=== PATIENT | female | born 1950 | race Hispanic/Latino ===

== ENCOUNTER → 2018-01-31 | Outpatient (CLI) | payer OTHER | END | disposition home or self-care (01) | LOC: RAH 13:34 | PROVIDERS: ATTEND Family Medicine | DX: Z12.31 Encounter for screening mammogram for malignant neoplasm of breast (principal) | CPT/HCPCS: 77067 ==

== ENCOUNTER → 2019-02-01 | Outpatient (CLI) | payer OTHER | END | disposition home or self-care (01) | LOC: RAH 12:33 | PROVIDERS: ATTEND Family Medicine | DX: Z12.31 Encounter for screening mammogram for malignant neoplasm of breast (principal) | CPT/HCPCS: 77067 ==

== ENCOUNTER 2021-10-07 06:43 | Day surgery (SDC) | payer OTHER ==
[2021-10-02 14:57] LABS: BASOPHILS % (AUTO) 0.3 % (0.0-5.0); EOSINOPHILS % (AUTO) 0.8 % (0.0-8.0); HEMATOCRIT 41.6 % (36-48); LYMPHOCYTES % (AUTO) 28.3 % (21.0-51.0); MEAN CORPUSCULAR HEMOGLOBIN 25.9 pg (27.0-33.0); MEAN CORPUSCULAR HGB CONC 31.3 g/dL (32.0-36.0); MONOCYTES % (AUTO) 8.4 % (3.0-13.0); NEUTROPHILS % (AUTO) 61.7 % (40.0-77.0); PLATELET COUNT (AUTO) 263 K/uL (130-400); RED BLOOD CELL COUNT(AUTO) 5.01 MIL/uL (4.00-5.50); WHITE BLOOD COUNT (AUTO) 8.8 K/uL (4.8-10.8)
[2021-10-02 14:59] LABS: APPEARANCE,URINE Clear (CLEAR); BILIRUBIN,URINE Negative (NEGATIVE); COLOR,URINE Yellow (YELLOW); GLUCOSE, URINE (UA) Negative (NEGATIVE); KETONES,URINE Trace mg/dL (NEGATIVE); LEUKOCYTE ESTERASE ,URINE Small (NEGATIVE); NITRATE,URINE Negative (NEGATIVE); OCCULT BLOOD,URINE Small (NEGATIVE); PH,URINE 5.5 (5.0-8.0); PROTEIN,URINE Negative (NEGATIVE)
[2021-10-02 15:12] LABS: BACTERIA,URINE Few /HPF (None Seen); SQUAMOUS EPITHELIAL CELL,UR Rare /HPF (0-2)
[2021-10-02 15:15] LABS: CREATININE 0.9 mg/dL (0.5-1.5); INR 0.93 (0.85-1.15); PROTHROMBIN TIME 9.8 SEC (9.6-11.6)
[2021-10-02 15:16] LABS: B-TYPE NATRIURETIC PEPTIDE 29 pg/mL (0-100); PARTIAL THROMBOPLASTIN TIME 24.8 SEC (26.3-35.5)
[2021-10-06 10:51] VITALS: BP 137/56
[2021-10-07] VITALS (10 sets, daily range): BP systolic 99–135; BP diastolic 42–66
[~2021-10-07] VITALS: Ht 157.5 cm; Wt 70.3 kg
[~2021-10-07 06:43] MED LIST: AEC81 PO; ATOR20TA65 PO; GLUC-252 PO; KRIL1CAP22 PO; LISI40TA9 PO; METO-408 PO
[2021-10-07] MEDS ORDERED: 0.9%NACL 1000ML 1,000 ML IV ONE (07:03)
[2021-10-07] MEDS ORDERED: LIFI1DRO OU (08:03)
[2021-10-07] MEDS ORDERED: NITROGLYCERIN 50MG VIAL ONE (08:48)
[2021-10-07] MEDS ORDERED: IOHEXOL-350 50ML VIAL IV ONE (08:48)
[2021-10-07] MEDS ORDERED: IOHEXOL 350 MG/ML 100ML INFUS..BTL IV ONE (08:48)
[2021-10-07] MEDS ORDERED: SODIUM BICARB 50MEQ 50ML VIAL 50 ML ONE (08:48)
[2021-10-07] MEDS ORDERED: LIDOCAINE HCL 400MG/20ML VIAL ONE (08:49)
[2021-10-07] MEDS ORDERED: FENTANYL CITRATE PF 50 MCG/1 ML 2ML VIAL ONE (09:29)
[2021-10-07] MEDS ORDERED: NICARDIPINE 25MG INJ IV ONE (09:29)
[2021-10-07] MEDS ORDERED: MIDAZOLAM HCL 1 MG/ML 2ML VIAL ONE (09:29)
[2021-10-07] MEDS ORDERED: HEPARIN 10,000 UNIT/10ML (1,000 UNIT/ML) VIAL ONE (09:36)
[2021-10-07] MEDS ORDERED: TICAGRELOR 90 MG TABLET ONE (10:03)
[2021-10-07] MEDS ORDERED: ASPIRIN 325MG EC TAB PO ONE (10:03)
[2021-10-07] MEDS ORDERED: TICA90TA PO (10:45)
[2021-10-07] MEDS ORDERED: ATOR40TA71 PO (10:45)
[2021-10-07] MEDS ORDERED: 0.9%NACL 1000ML 1,000 ML IV SCH (11:00)
[2021-10-07] MEDS ORDERED: ACETAMINOPHEN 325 MG TAB ONE (11:33)
[2021-10-07] MEDS ORDERED: TICAGRELOR 90 MG TABLET PO SCH (21:00)
[2021-10-08] MEDS ORDERED: ASPIRIN 81MG CHEW TAB PO SCH (09:00)
== END 2021-10-07 15:00 | disposition home or self-care (01) ==
LOC: DAH 06:43
PROVIDERS: ATTEND Internal Medicine Cardiovascular Disease
DX: R94.39 Abnormal result of other cardiovascular function study (principal); I25.119 Atherosclerotic heart disease of native coronary artery with unspecified angina pectoris; I10 Essential (primary) hypertension; E78.5 Hyperlipidemia, unspecified; Z90.710 Acquired absence of both cervix and uterus; Z79.82 Long term (current) use of aspirin; Z79.01 Long term (current) use of anticoagulants; Z79.899 Other long term (current) drug therapy
CPT/HCPCS: 80048; 83880; 85025; 85610; 85730; 87088; 81001; 36415 ×2; 71045; 93005 ×2; 93454; 85347; C9600; C1769 ×2; C1894; C1887; C1874; C1725; Q9965 ×2; J3010; J3490 ×4; J7030; J1644 ×2; J2250; Q9967; A4215; A4222; A4221; A4663; A4216; A4606; A4223 ×3; 99156; 99157

== ENCOUNTER 2021-10-09 16:09 | Observation (INO) | payer OTHER ==
[~2021-10-09] VITALS: Ht 157.5 cm; Wt 68.5 kg
[~2021-10-09 16:09] MED LIST changes: -ATOR20TA65 PO; +ATOR40TA71 PO; +LIFI1DRO OU; +TICA90TA PO
[2021-10-09] MEDS ORDERED: NITROGLYCERIN 0.4 MG SL TAB SL ONE (16:20)
[2021-10-09] MEDS ORDERED: ASPIRIN 325MG TAB ONE (16:20)
[2021-10-09] MEDS ORDERED: NITROGLYCERIN 1GM OINT 1 INCH/1GM TD ONE ×2 (16:20→16:30)
[2021-10-09] MEDS ORDERED: ONDANSETRON 4MG INJ IVP ONE (16:30)
[2021-10-09] MEDS ORDERED: NITROGLYCERIN 0.4 MG SL TAB SL PRN (16:30)
[2021-10-09] MEDS ORDERED: ASPIRIN 325MG TAB PO ONE (16:30)
[2021-10-09 16:55] LABS: BASOPHILS % (AUTO) 0.3 % (0.0-5.0); EOSINOPHILS % (AUTO) 0.6 % (0.0-8.0); HEMATOCRIT 36.4 % (36-48); LYMPHOCYTES % (AUTO) 28.5 % (21.0-51.0); MEAN CORPUSCULAR HEMOGLOBIN 26.5 pg (27.0-33.0); MEAN CORPUSCULAR VOLUME 80.5 fL (79-99); NEUTROPHILS % (AUTO) 60.2 % (40.0-77.0); PLATELET COUNT (AUTO) 276 K/uL (130-400); RED BLOOD CELL COUNT(AUTO) 4.52 MIL/uL (4.00-5.50); RED CELL DISTRIBUTION WIDTH 14.6 % (11.0-15.5); WHITE BLOOD COUNT (AUTO) 10.4 K/uL (4.8-10.8)
[2021-10-09 17:00] LABS: APPEARANCE,URINE CLEAR (CLEAR); BILIRUBIN,URINE NEGATIVE (NEGATIVE); COLOR,URINE YELLOW (YELLOW); GLUCOSE, URINE (UA) NEGATIVE (NEGATIVE); KETONES,URINE NEGATIVE (NEGATIVE); LEUKOCYTE ESTERASE ,URINE SMALL (NEGATIVE); NITRATE,URINE NEGATIVE (NEGATIVE); OCCULT BLOOD,URINE SMALL (NEGATIVE); PH,URINE 6.5 (5.0-8.0); PROTEIN,URINE NEGATIVE (NEGATIVE); UROBILINOGEN,URINE 0.2 mg/dL (0.2-1.0)
[2021-10-09] MEDS ORDERED: CLOPIDOGREL 300MG TAB PO ONE (17:00)
[2021-10-09 17:04] LABS: CREATININE 0.9 mg/dL (0.5-1.5)
[2021-10-09 17:07] LABS: BACTERIA,URINE Rare /HPF (None Seen); SQUAMOUS EPITHELIAL CELL,UR Few /HPF (0-2)
[2021-10-09 17:09] LABS: ALBUMIN 3.5 g/dL (3.5-5.0); TOTAL PROTEIN, SERUM 6.7 g/dL (6.0-8.3)
[2021-10-09] MEDS: PANTOPRAZOLE 40 MG TAB DR PO SCH (17:22)
[2021-10-09 17:23] LABS: B-TYPE NATRIURETIC PEPTIDE 11 pg/mL (0-100)
[2021-10-09] MEDS ORDERED: ACETAMINOPHEN 650 MG SUPPOSITORY RC PRN (17:30)
[2021-10-09] MEDS ORDERED: MORPHINE 2 MG SYG IVP PRN (17:30)
[2021-10-09] MEDS ORDERED: ACETAMINOPHEN 325 MG TAB PO PRN (17:30)
[2021-10-09] MEDS ORDERED: CLONIDINE HCL 0.1 MG TABLET PO PRN (17:30)
[2021-10-09] MEDS ORDERED: ASPIRIN 325MG TAB PO SCH (17:30)
[2021-10-09] MEDS ORDERED: ONDANSETRON 4MG INJ IVP PRN (17:30)
[2021-10-09] MEDS: LIFITEGRAST OU SCH (21:00)
[2021-10-09] MEDS: INSULIN HUMULIN R 100 UNIT/ML 3ML SQ SCH (21:00)
[2021-10-09] MEDS: GLUCOSAMINE-CHONDROITIN PO SCH (21:00)
[2021-10-09] MEDS ORDERED: ATORVASTATIN 40 MG TABLET PO SCH (21:00)
[2021-10-09] MEDS: FISH OIL 1000 MG/CAP PO SCH (22:00)
[2021-10-09] MEDS: SUCRALFATE 1 GM TABLET PO SCH (22:00)
[2021-10-09] MEDS: ATORVASTATIN 40 MG TABLET PO SCH (22:00)
[2021-10-10] VITALS: BP 136/71
[2021-10-10 04:00] VITALS: BP 125/74
[2021-10-10 04:21] LABS: HEMATOCRIT 38.4 % (36-48); MEAN CORPUSCULAR HEMOGLOBIN 26.1 pg (27.0-33.0); MEAN CORPUSCULAR VOLUME 81.5 fL (79-99); RED BLOOD CELL COUNT(AUTO) 4.71 MIL/uL (4.00-5.50); RED CELL DISTRIBUTION WIDTH 14.7 % (11.0-15.5); WHITE BLOOD COUNT (AUTO) 8.3 K/uL (4.8-10.8)
[2021-10-10 04:41] LABS: CREATININE 0.8 mg/dL (0.5-1.5); MAGNESIUM 2.1 mg/dL (1.80-2.40); PHOSPHORUS 4.5 mg/dL (2.5-4.9); POTASSIUM 4.2 mmol/L (3.5-5.1)
[2021-10-10] MEDS: INSULIN HUMULIN R 100 UNIT/ML 3ML SQ SCH ×4 (05:34→21:00)
[2021-10-10] MEDS: SUCRALFATE 1 GM TABLET PO SCH ×2 (06:22→11:46)
[2021-10-10 08:30] VITALS: BP 117/73
[2021-10-10] MEDS ORDERED: ASPIRIN 81MG CHEW TAB PO SCH (09:00)
[2021-10-10] MEDS ORDERED: ASPIRIN 81 MG EC TAB PO SCH (09:00)
[2021-10-10] MEDS ORDERED: PANTOPRAZOLE 40 MG TAB DR PO SCH (09:00)
[2021-10-10] MEDS: METOPROLOL SUCCINATE 25 MG TAB.SR.24H PO SCH (09:21)
[2021-10-10] MEDS: LISINOPRIL 40 MG TABLET PO SCH (09:21)
[2021-10-10] MEDS: PANTOPRAZOLE 40 MG TAB DR PO SCH ×2 (09:21→22:34)
[2021-10-10] MEDS: CLOPIDOGREL 75MG TAB PO SCH (09:22)
[2021-10-10] MEDS: ASPIRIN 81MG CHEW TAB PO SCH (09:22)
[2021-10-10] MEDS: ENOXAPARIN SODIUM 40 MG/0.4 ML SYRINGE SQ SCH (09:23)
[2021-10-10] MEDS: LIFITEGRAST OU SCH ×2 (09:23→22:35)
[2021-10-10] MEDS ORDERED: PHARMACY COMMUNICATION MISC SCH (11:30)
[2021-10-10] MEDS ORDERED: SUCRALFATE 1 GM TABLET PO SCH (11:30)
[2021-10-10 12:04] VITALS: BP 132/67
[2021-10-10] MEDS ORDERED: [UNRECOGNIZED DRUG - OTHER] PO PRN ×3 (13:00)
[2021-10-10] MEDS ORDERED: COMPOUND PO MISCELLANEOUS 1 EACH MISC MISC PRN (13:00)
[2021-10-10] MEDS ORDERED: GUAIFENESIN-DM 200/20 MG 10 ML PO PRN (14:04)
[2021-10-10] MEDS ORDERED: GUAIFENESIN-DM 200/20 MG 10 ML ONE (14:07)
[2021-10-10 16:26] VITALS: BP 134/68
[2021-10-10 19:21] VITALS: BP 138/73
[2021-10-10] MEDS: FISH OIL 1000 MG/CAP PO SCH (22:34)
[2021-10-10] MEDS: ATORVASTATIN 40 MG TABLET PO SCH (22:34)
[2021-10-10] MEDS: GLUCOSAMINE-CHONDROITIN PO SCH (22:34)
[2021-10-11 00:07] VITALS: BP 114/60
[2021-10-11 03:15] VITALS: BP 106/48
[2021-10-11] MEDS: INSULIN HUMULIN R 100 UNIT/ML 3ML SQ SCH ×2 (06:47→11:30)
[2021-10-11 07:35] VITALS: BP 116/57
[2021-10-11] MEDS: LIFITEGRAST OU SCH (09:00)
[2021-10-11] MEDS: PANTOPRAZOLE 40 MG TAB DR PO SCH (09:03)
[2021-10-11] MEDS: CLOPIDOGREL 75MG TAB PO SCH (09:03)
[2021-10-11] MEDS: ASPIRIN 81MG CHEW TAB PO SCH (09:03)
[2021-10-11] MEDS: ENOXAPARIN SODIUM 40 MG/0.4 ML SYRINGE SQ SCH (09:04)
[2021-10-11 11:10] VITALS: BP 113/66
[2021-10-11] MEDS ORDERED: NITROGLYCERIN 0.4 MG SL TAB SL PRN (11:30)
[2021-10-11] MEDS: METOPROLOL SUCCINATE 25 MG TAB.SR.24H PO SCH (11:33)
[2021-10-11] MEDS: LISINOPRIL 40 MG TABLET PO SCH (11:33)
[2021-10-11] MEDS ORDERED: CLOP75TA14 PO (11:48)
[2021-10-11] MEDS ORDERED: ESOM40CA54 PO (11:48)
== END 2021-10-11 12:41 | disposition home or self-care (01) ==
LOC: EDH 16:09 → EDHIP 17:09 → 2AH 20:59
PROVIDERS: ADMIT Internal Medicine Cardiovascular Disease; ATTEND Internal Medicine Cardiovascular Disease
DX: R07.89 Other chest pain (principal); Z20.822 Contact with and (suspected) exposure to COVID-19; K29.70 Gastritis, unspecified, without bleeding; R51.9 Headache, unspecified; R73.9 Hyperglycemia, unspecified; E78.5 Hyperlipidemia, unspecified; I24.9 Acute ischemic heart disease, unspecified; I10 Essential (primary) hypertension; I25.110 Atherosclerotic heart disease of native coronary artery with unstable angina pectoris; E78.00 Pure hypercholesterolemia, unspecified; Z79.82 Long term (current) use of aspirin; Z79.899 Other long term (current) drug therapy; Z95.5 Presence of coronary angioplasty implant and graft
CPT/HCPCS: 99285; 82550 ×4; 83874 ×3; 84484 ×5; 80053; 83880; 85025; 81001; 36415 ×2; 87635; 71045; 93005 ×3; 96374; 96372 ×2; 83735; 84100; 80048; 85027; 82948 ×5; G0378 ×44; J2405; J1650 ×2

== ENCOUNTER → 2022-01-19 | Outpatient (CLI) | payer OTHER ==
[~2022-01-19] MED LIST changes: +CLOP75TA14 PO; +ESOM40CA54 PO; -TICA90TA PO
[2022-01-19 12:18] LABS: BASOPHILS % (AUTO) 0.3 % (0.0-5.0); EOSINOPHILS % (AUTO) 0.8 % (0.0-8.0); HEMATOCRIT 37.8 % (36-48); LYMPHOCYTES % (AUTO) 28.8 % (21.0-51.0); MEAN CORPUSCULAR HEMOGLOBIN 26.6 pg (27.0-33.0); MEAN CORPUSCULAR VOLUME 83.1 fL (79-99); MONOCYTES % (AUTO) 8.2 % (3.0-13.0); NEUTROPHILS % (AUTO) 61.5 % (40.0-77.0); PLATELET COUNT (AUTO) 286 K/uL (130-400); RED BLOOD CELL COUNT(AUTO) 4.55 MIL/uL (4.00-5.50); RED CELL DISTRIBUTION WIDTH 14.2 % (11.0-15.5); WHITE BLOOD COUNT (AUTO) 9.1 K/uL (4.8-10.8)
[2022-01-19 12:57] LABS: ALBUMIN 3.7 g/dL (3.5-5.0); CREATININE 0.8 mg/dL (0.5-1.5); POTASSIUM 4.6 mmol/L (3.5-5.1); TOTAL PROTEIN, SERUM 6.8 g/dL (6.0-8.3)
== END | disposition home or self-care (01) ==
LOC: LAB 08:18
PROVIDERS: ATTEND Internal Medicine Cardiovascular Disease
DX: I25.10 Atherosclerotic heart disease of native coronary artery without angina pectoris (principal); R10.9 Unspecified abdominal pain
CPT/HCPCS: 36415; 80053; 80061; 85025

== ENCOUNTER → 2022-05-05 | Outpatient (CLI) | payer OTHER ==
[~2022-05-05] MED LIST changes: +CLOP-31 PO; -CLOP75TA14 PO
[2022-05-05 12:40] LABS: BASOPHILS % (AUTO) 0.2 % (0.0-5.0); EOSINOPHILS % (AUTO) 0.7 % (0.0-8.0); HEMATOCRIT 39.3 % (36-48); LYMPHOCYTES % (AUTO) 28.6 % (21.0-51.0); MEAN CORPUSCULAR HEMOGLOBIN 26.7 pg (27.0-33.0); MEAN CORPUSCULAR HGB CONC 31.6 g/dL (32.0-36.0); MEAN CORPUSCULAR VOLUME 84.5 fL (79-99); MONOCYTES % (AUTO) 7.9 % (3.0-13.0); NEUTROPHILS % (AUTO) 62.3 % (40.0-77.0); PLATELET COUNT (AUTO) 289 K/uL (130-400); RED BLOOD CELL COUNT(AUTO) 4.65 MIL/uL (4.00-5.50); RED CELL DISTRIBUTION WIDTH 14.2 % (11.0-15.5); WHITE BLOOD COUNT (AUTO) 8.8 K/uL (4.8-10.8)
[2022-05-05 13:00] LABS: ALBUMIN 3.8 g/dL (3.5-5.0); CREATININE 0.8 mg/dL (0.5-1.5); POTASSIUM 4.2 mmol/L (3.5-5.1); TOTAL PROTEIN, SERUM 7.1 g/dL (6.0-8.3)
== END | disposition home or self-care (01) ==
LOC: LAB 10:08
PROVIDERS: ATTEND Internal Medicine Cardiovascular Disease
DX: I10 Essential (primary) hypertension (principal)
CPT/HCPCS: 36415; 80053; 80061; 85025

== ENCOUNTER → 2022-09-09 | Outpatient (CLI) | payer OTHER ==
[2022-09-09 12:15] LABS: ALBUMIN 3.5 g/dL (3.5-5.0); CREATININE 0.7 mg/dL (0.5-1.5); POTASSIUM 4.1 mmol/L (3.5-5.1); TOTAL PROTEIN, SERUM 6.4 g/dL (6.0-8.3)
== END | disposition home or self-care (01) ==
LOC: LAB 08:14
PROVIDERS: ATTEND Internal Medicine Cardiovascular Disease
DX: I10 Essential (primary) hypertension (principal); I25.10 Atherosclerotic heart disease of native coronary artery without angina pectoris; E78.5 Hyperlipidemia, unspecified
CPT/HCPCS: 36415; 80053; 80061

== ENCOUNTER → 2023-06-22 | Outpatient (CLI) | payer OTHER ==
[2023-06-22 10:37] LABS: BASOPHILS # (AUTO) 0.02 K/uL (0.00-0.20); BASOPHILS % (AUTO) 0.2 % (0.0-5.0); EOSINOPHILS # (AUTO) 0.03 K/uL (0.00-0.70); EOSINOPHILS % (AUTO) 0.3 % (0.0-8.0); HEMATOCRIT 37.8 % (36-48); IMMATURE GRANULOCYTE ABSOLUTE 0.05 K/uL (0-1); LYMPHOCYTES # (AUTO) 2.7 K/uL (1.0-4.8); LYMPHOCYTES % (AUTO) 27.5 % (21.0-51.0); MEAN CORPUSCULAR HEMOGLOBIN 26.7 pg (27.0-33.0); MEAN CORPUSCULAR HGB CONC 32.3 g/dL (32.0-36.0); MEAN CORPUSCULAR VOLUME 82.7 fL (79-99); MONOCYTES # (AUTO) 0.7 K/uL (0.1-1.0); MONOCYTES % (AUTO) 7.4 % (3.0-13.0); NEUTROPHILS # (AUTO) 6.2 K/uL (1.8-7.7); NEUTROPHILS % (AUTO) 64.1 % (40.0-77.0); PLATELET COUNT (AUTO) 285 K/uL (130-400); RED BLOOD CELL COUNT(AUTO) 4.57 MIL/uL (4.00-5.50); RED CELL DISTRIBUTION WIDTH 13.7 % (11.0-15.5); WHITE BLOOD COUNT (AUTO) 9.7 K/uL (4.8-10.8)
[2023-06-22 11:02] LABS: ALBUMIN 3.5 g/dL (3.5-5.0); BILIRUBIN,TOTAL 0.5 mg/dL (0.2-1.0); CREATININE 0.7 mg/dL (0.5-1.0); POTASSIUM 3.6 mmol/L (3.5-5.1); TOTAL PROTEIN, SERUM 6.6 g/dL (6.0-8.3)
== END | disposition home or self-care (01) ==
LOC: LAB 10:03
PROVIDERS: ATTEND Internal Medicine Gastroenterology
DX: R10.13 Epigastric pain (principal)
CPT/HCPCS: 36415; 80053; 82150; 83690; 85025

== ENCOUNTER → 2023-06-30 | Outpatient (CLI) | payer OTHER ==
[~2023-06-30] MED LIST changes: +IOHEXOL-350 75 ML VIAL IV ONE
== END | disposition home or self-care (01) ==
LOC: RAH 08:11
PROVIDERS: ATTEND Internal Medicine Gastroenterology
DX: R10.13 Epigastric pain (principal); I70.0 Atherosclerosis of aorta; M47.815 Spondylosis without myelopathy or radiculopathy, thoracolumbar region
CPT/HCPCS: 74170; Q9967

== ENCOUNTER → 2023-11-01 | Outpatient (CLI) | payer OTHER ==
[~2023-11-01] MED LIST changes: -ESOM40CA54 PO; +ESOM40CA66 PO; -IOHEXOL-350 75 ML VIAL IV ONE
[2023-11-01 13:07] LABS: ALBUMIN 3.7 g/dL (3.5-5.0); BILIRUBIN,DIRECT 0.1 mg/dL (0.0-0.3); BILIRUBIN,TOTAL 0.7 mg/dL (0.2-1.0); TOTAL PROTEIN, SERUM 6.9 g/dL (6.0-8.3)
== END | disposition home or self-care (01) ==
LOC: LAB 10:34
PROVIDERS: ATTEND Internal Medicine Cardiovascular Disease
DX: E78.5 Hyperlipidemia, unspecified (principal)
CPT/HCPCS: 36415; 80061; 80076

== ENCOUNTER → 2024-02-23 | Outpatient (CLI) | payer OTHER ==
[2024-02-23 12:41] LABS: ALBUMIN 3.4 g/dL (3.5-5.0); BILIRUBIN,TOTAL 0.3 mg/dL (0.2-1.0); CREATININE 0.9 mg/dL (0.5-1.0); POTASSIUM 3.5 mmol/L (3.5-5.1); TOTAL PROTEIN, SERUM 6.5 g/dL (6.0-8.3)
== END | disposition home or self-care (01) ==
LOC: LAB 08:13
PROVIDERS: ATTEND Internal Medicine Cardiovascular Disease
DX: E78.2 Mixed hyperlipidemia (principal); Z95.5 Presence of coronary angioplasty implant and graft
CPT/HCPCS: 36415; 80053; 80061